=== PATIENT | male | born 1965 | race Caucasian/White ===

== ENCOUNTER → 2017-10-15 08:27 | Outpatient (CLI) | payer BC, SELFPAY ==
[2017-10-15 11:02] LABS: Anion Gap 8 (5-15); BUN 14 mg/dL (7-18); BUN/Creat Ratio 14.9 RATIO (10-20); Calcium,Total 9.3 mg/dL (8.5-10.1); Chloride 105 mmol/L (98-107); Cholesterol 207 mg/dL (200); Creatinine, Serum 0.94 mg/dL (0.70-1.30); EST Glomerular Filtration Rate 90 mL/min (>60); Est Glom Filt Rate - Afr Amer 109 mL/min (>60); Glucose 97 mg/dL (74-106); High Density Lipoprotein 75 mg/dL; Potassium 4.1 mmol/L (3.5-5.1); Sodium Level 140 mmol/L (136-145); Triglycerides 155 mg/dL; Very Low Density Lipoprotein 31 mg/dL (5-40)
== END ==
PROVIDERS: Family Provider Family Medicine; PCP Family Medicine; Visit Provider Family Medicine
DX: I10 Essential (primary) hypertension (principal)
CPT/HCPCS: 36415; 80048; 80061

== ENCOUNTER → 2017-10-30 08:45 | Outpatient (CLI) | payer BC, SELFPAY ==
--- NOTE | 2017-10-30 08:54 | ECHOD_ITS ---
Reason For Study: htn Procedure This was a 2D Doppler, Color Flow transthoracic echocardiogram. The exam was of poor technical quality due to body habitus. The study was technically difficult. Contrast injection was performed. Exam performed in department. Left Ventricle Normal LV size. Left ventricular systolic function is normal. The estimated ejection fraction is 60 %. Normal diastology for age. No regional wall motion abnormalities noted. Right Ventricle Normal RV size. Normal systolic function. Atria Normal left atrium. Normal right atrium. No doppler evidence for ASD. Mitral Valve There is no mitral annular calcification. Normal mitral valve. Trivial mitral valve insufficiency. Tricuspid Valve Normal tricuspid valve. Trivial tricuspid valve insufficiency. Unable to estimate RV systolic pressure/pulmonary artery pressure due to technically difficult study. Aortic Valve Trisinus/trileaflet aortic valve. Normal aortic valve. Trivial eccentric aortic valve insufficiency. Pulmonic Valve The pulmonic valve is not well visualized. Great Vessels Normal sized aortic root. Pericardium/Pleural No pericardial effusion. Medication 22 gauge I.V. with prn adaptor inserted into right arm. Diluted definity 4ml given slow IV push to enhance endocardial definition. MMode/2D Measurements & Calculations LVIDd: 4.5 cm IVSd: 0.84 cm Ao root diam: 3.5 cm LVIDs: 2.9 cm LVPWd: 0.84 cm LA dimension: 3.9 cm RVDd: 3.5 cm FS: 35.2 % LAV(MOD-bp): 41.0 ml EDV(MOD-sp4): 121.3 ml EDV(MOD-sp2): 91.0 ml LAV(MOD-bp) Indexed: 16.1 ml/m2 ESV(MOD-sp4): 34.3 ml EF(MOD-sp2): 57.4 % LAV(MOD-sp2): 42.6 ml EF(MOD-sp4): 71.7 % LAV(MOD-sp4): 38.6 ml SV(MOD-sp4): 87.0 ml SV(MOD-sp2): 52.2 ml LA A4 area: 16.4 cm2 RA A4 area: 15.1 cm2 Doppler Measurements & Calculations MV E max prosper: 81.3 cm/sec Lat Peak E' Prosper: 12.7 cm/sec Med Peak E' Prosper: 8.6 cm/sec MV A max prosper: 46.6 cm/sec E/E' lat: 6.4 E/E' med: 9.4 MV E/A: 1.7 Ao V2 max: 103.0 cm/sec LV V1 max: 94.2 cm/sec Ao max P.2 mmHg LV V1 max P.6 mmHg Interpretation Summary The study was technically difficult. Contrast injection was performed. Left ventricular systolic function is normal. The estimated ejection fraction is 60 %. Trivial mitral valve insufficiency. Trivial tricuspid valve insufficiency. Trivial eccentric aortic valve insufficiency. Unable to estimate RV systolic pressure/pulmonary artery pressure due to technically difficult study. Normal diastology for age. Ordering Physician: Farhan Tucker Referring Physician: Farhan Tucker Performed By: Krista Silva, RDJAEL, RVT
== END ==
PROVIDERS: Family Provider Family Medicine; PCP Family Medicine; Visit Provider Family Medicine
DX: I10 Essential (primary) hypertension (principal)
CPT/HCPCS: 93306; Q9957; A4216; C8929

== ENCOUNTER → 2018-05-08 13:03 | Outpatient (CLI) | payer BC, SELFPAY ==
--- NOTE | 2018-05-08 13:17 | RAD_ITS ---
STUDY: X-RAY - RIGHT HIP REASON FOR EXAM: Male, 52 years old. Chronic hip pain for 6 months. TECHNIQUE: AP pelvis and 2 views of the right hip were obtained. COMPARISON: None. FINDINGS: Normal femoral head, neck, intertrochanteric region and visualized proximal femur. Normal acetabulum. Normal hip joint. Normal visualized superior and inferior pubic rami and ischial tuberosities. RAD/HIP, UNI W/ Pelvis 2-3 Views IMPRESSION: Normal x-ray examination of the hip. Electronically Signed: Lucio Arriaga MD at 11:33 EST Tel , Service support ,
== END ==
PROVIDERS: Family Provider Family Medicine; PCP Family Medicine
DX: M25.551 Pain in right hip (principal); M70.71 Other bursitis of hip, right hip; Y93.9 Activity, unspecified
CPT/HCPCS: 73502

== ENCOUNTER → 2019-01-08 08:52 | Outpatient (CLI) | payer BC, SELFPAY ==
[2019-01-08 10:43] LABS: Anion Gap 6 (5-15); BUN 14 mg/dL (7-18); BUN/Creat Ratio 14.2 RATIO (10-20); Calcium,Total 9.5 mg/dL (8.5-10.1); Chloride 105 mmol/L (98-107); Cholesterol 204 mg/dL (200); Creatinine, Serum 0.99 mg/dL (0.70-1.30); EST Glomerular Filtration Rate 85 mL/min (>60); Est Glom Filt Rate - Afr Amer 103 mL/min (>60); Glucose 102 mg/dL (74-106); High Density Lipoprotein 76 mg/dL; Potassium 4.3 mmol/L (3.5-5.1); Sodium Level 139 mmol/L (136-145); Triglycerides 122 mg/dL; Very Low Density Lipoprotein 24 mg/dL (5-40)
== END ==
PROVIDERS: Family Provider Family Medicine; PCP Family Medicine; Referring Provider Family Medicine; Visit Provider Family Medicine
DX: I10 Essential (primary) hypertension (principal)
CPT/HCPCS: 36415; 80048; 80061